=== PATIENT | female | born 1945 | race Two or more races ===

== ENCOUNTER 2017-11-17 12:14 | Outpatient (CLI) | payer OTHER | END 2017-11-17 13:20 | disposition home or self-care (01) | LOC: MAMO-SONO 12:14 → SONOGRAMA 12:14 → MAMO-SONO 13:20 | DX: Z12.31 Encounter for screening mammogram for malignant neoplasm of breast (principal); Z87.898 Personal history of other specified conditions; N60.11 Diffuse cystic mastopathy of right breast; N60.12 Diffuse cystic mastopathy of left breast ==

== ENCOUNTER 2018-11-27 08:33 | Outpatient (CLI) | payer OTHER | END 2018-11-27 08:36 | disposition home or self-care (01) | LOC: MAMO-SONO 08:33 | DX: Z12.31 Encounter for screening mammogram for malignant neoplasm of breast (principal); Z87.898 Personal history of other specified conditions; N60.11 Diffuse cystic mastopathy of right breast; N60.12 Diffuse cystic mastopathy of left breast ==

== ENCOUNTER → 2025-02-17 | Outpatient (CLI) | payer OTHER | END | disposition home or self-care (01) | LOC: RAD 15:28 | PROVIDERS: ATTEND Internal Medicine | DX: J20.9 Acute bronchitis, unspecified (principal) ==